=== PATIENT | female | born 2000 | race Asian ===

== ENCOUNTER 2019-04-13 14:59 | Emergency (ER) | payer OTHER ==
--- NOTE | 2019-04-13 15:22 | ED ---
Asthma - HPI Summary HPI Summary: 19 year old female presents to the ED with a chief complaint of asthma exacerbation 30 minutes before arrival. Patient had shortness of breath and wheezing but feels completely normal upon arrival at ED. Patient mentions that she was hospitalized 04/04/19 for asthma. Patient does not drink alcohol, smoke tobacco, or do recreational drugs. Family history of asthma. - History of Current Complaint Chief Complaint: EDAsthma Stated Complaint: ASHTMA Time Seen by Provider: 04/13/19 15:15 Hx Obtained From: Patient Onset/Duration: Sudden Onset, Resolved Timing: Minutes Initial Severity: Severe Current Severity: None Pain Intensity: 0 Pain Scale Used: 0-10 Numeric Location/Character: Wheezing Aggravating Symptoms: Nothing Alleviating Symptoms: Nothing Associated Signs and Symptoms: Positive: Negative - Allergy/Home Medications Allergies/Adverse Reactions: Allergies Allergy/AdvReac Type Severity Reaction Status Date / Time No Known Allergies Allergy Verified 04/13/19 15:08 PMH/Surg Hx/FS Hx/Imm Hx Respiratory History: Reports: Hx Asthma Infectious Disease History: No Infectious Disease History: Denies: Traveled Outside the [place] in Last 30 Days - Family History Known Family History: Positive: Other - asthma - Social History Alcohol Use: None Hx Substance Use: No Substance Use Type: Reports: None Hx Tobacco Use: No Review of Systems Negative: Fever Positive: Shortness Of Breath, Other - wheezing All Other Systems Reviewed And Are Negative: Yes Physical Exam - Summary Physical Exam Summary: VITAL SIGNS: Reviewed. GENERAL: Patient is a well-developed and nourished female who is lying comfortable in the stretcher. Patient is not in any acute respiratory distress. HEAD AND FACE: No signs of trauma. No ecchymosis, hematomas or skull depressions. No sinus tenderness. EYES: PERRLA, EOMI x 2, No injected conjunctiva, no nystagmus. EARS: Hearing grossly intact. Ear canals and tympanic membranes are within normal limits. MOUTH: Oropharynx within normal limits. NECK: Supple, trachea is midline, no adenopathy, no JVD, no carotid bruit, no c- spine tenderness, neck with full ROM. CHEST: Symmetric, no tenderness at palpation. LUNGS: Clear to auscultation bilaterally. No wheezing or crackles. CVS: Regular rate and rhythm, S1 and S2 present, no murmurs or gallops appreciated. ABDOMEN: Soft, non-tender. No signs of distention. No rebound, no guarding, and no masses palpated. Bowel sounds are normal. EXTREMITIES: FROM in all major joints, no edema, no cyanosis or clubbing. NEURO: Alert and oriented x 3. No acute neurological deficits. Speech is normal and follows commands. SKIN: Dry and warm. Triage Information Reviewed: Yes Vital Signs On Initial Exam: Initial Vitals Temp Pulse Resp BP Pulse Ox 97.4 F 86 18 129/97 98 04/13/19 15:05 04/13/19 15:05 04/13/19 15:05 04/13/19 15:05 04/13/19 15:05 Vital Signs Reviewed: Yes Procedures - Sedation Patient Received Moderate/Deep Sedation with Procedure: No Diagnostics - Vital Signs Vital Signs Temp Pulse Resp BP Pulse Ox 04/13/19 15:05 97.4 F 86 18 129/97 98 - Laboratory Lab Statement: Any lab studies that have been ordered have been reviewed, and results considered in the medical decision making process. Asthma Course/Dx - Course Assessment/Plan: 19 year old female presents to the ED with a chief complaint of asthma exacerbation 30 minutes before arrival. Patient had shortness of breath and wheezing but feels completely normal upon arrival at ED. Patient mentions that she was hospitalized 04/04/19 for asthma. Patient does not drink alcohol, smoke tobacco, or do recreational drugs. Family history of asthma. Patient reports that she received Duo[facility]eb and [facility] and symptoms have resolved. The patient is asymptomatic in the ED. The patient is being asystematic for more than an hour. Therefore, since all symptoms are resolved the patient will be discharged home with follow-up with PCP. Patient was given a prescription for prednisone and Flovent. Patient has albuterol. I discussed all the findings and test results with the patient. Patient was instructed to return to the emergency room immediately if any of the symptoms return or worsen . Plan of care was discussed with the patient and understands and agrees. All questions were answered at patient satisfaction. There were no further complaints or concerns. Lung exam before discharge: CTA B /L. Good air exchange. No wheezing or crackles heard. CVS: S1 and S2 present. No murmurs appreciated. Patient is alert and oriented x 3. Patient is hemodynamically stable. 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 Return to the ED if you experience new or worsened symptoms. - Billing Disposition and Condition Condition: STABLE Disposition: Home - Attestation Statements Document Initiated by Kendall: Yes Documenting Scribe: Iván Pereira Provider For Whom Kendall is Documenting (Include Credential): Gerry Lomax MD Scribe Attestation: Iván Hurtado scribed for Gerry Lomax MD on 04/13/19 at 2126. Scribe Documentation Reviewed: Yes Provider Attestation: The documentation as recorded by the Iván faulkner accurately reflects the service I personally performed and the decisions made by , Gerry Lomax MD Status of Scribe Document: Viewed
[2019-04-13 15:41] VITALS: BP 136/84
== END 2019-04-13 15:34 | disposition home or self-care (01) ==
LOC: ED 14:59
DX: J45.901 Unspecified asthma with (acute) exacerbation (principal)
CPT/HCPCS: 99282